=== PATIENT | female | born 1990 | race Asian ===

== ENCOUNTER → 2017-03-04 | Outpatient (CLI) | payer SELFPAY | LOC: COL.RAD 10:29 | DX: R00.2 Palpitations (principal); R07.9 Chest pain, unspecified ==

== ENCOUNTER 2020-07-15 14:37 | Outpatient (CLI) | payer OTHER ==
[2020-07-15] VITALS (7 sets, daily range): BP systolic 92–115; BP diastolic 53–65; PULSE 77–120; TEMP 98.7
[~2020-07-15] VITALS: Ht 165.1 cm; Wt 65.0 kg
[2020-07-15] MEDS ORDERED: NATURAL IRON65 MG (15:11)
[2020-07-15] MEDS ORDERED: PRENATAL TABLET PO (15:11)
--- NOTE | 2020-07-15 15:15 | NUR ---
1443- Pt arrives on unit ambulatory with . Pt sent over from the office by Dr Flower with complaints of vaginal bleeding. Pt oriented to room. Into bathroom to change into gown. 1453- Pt into bed, EFM and TOCO on and tracing. O2 sat monitor on and tracing maternal HR. VSS. Pt states she had dark red and pink bleeding this morning. Pt denies LOF, cramping, or contractions. +FM per Pt and heard on monitor. Assessment completed.
--- NOTE | 2020-07-15 17:45 | NUR ---
1730- Terbutaline given SQ in right upper arm. Pt tolerated well. 1740- TOCO adjusted, no contractions noted on monitor. Pt denies feeling tightening since Terbutaline shot. 174- Dr Flower at bedside. Reviews strip. Palpates abd. Discusses contractions and bleeding. wanting to transfer to [facility]. Pt tearful. Questions encouraged and answered.
[2020-07-15 18:14] LABS: AMORPHOUS CRYSTAL Present /uL; MUCOUS Present /lpf; PH 7 (5-8); URINE APPEARANCE Hazy; URINE BACTERIA Rare /hpf; URINE BILIRUBIN Negative (NEGATIVE); URINE BLOOD 3+ (NEGATIVE); URINE COLOR Yellow; URINE GLUCOSE Negative (NEGATIVE); URINE KETONE Negative (NEGATIVE); URINE LEUKOCYTE ESTERASE 3+ (NEGATIVE); URINE NITRATE Negative (NEGATIVE); URINE PROTEIN(semi-quant) Negative (NEGATIVE); URINE RBC 0-2 /hpf; URINE UROBILINOGEN Negative (NEGATIVE)
[2020-07-15 18:29] LABS: COLLECTION METHOD CLEAN CATCH
--- NOTE | 2020-07-15 19:00 | NUR ---
1820 Report received, care assumed. Patient resting in bed with at side. Denies contractions. No contractions per toco. FHR reactive. 184 EMS to unit, report given. 1 contraction noted per toco in the past hour. Patient denies feeling contraction. Patient assisted to bathroom. No bleeding noted on peripad. Patient voids without difficulty and then assisted to EMS stretcher. 1900 Patient discharged to care of EMS.
--- NOTE | 2020-07-15 19:10 | NUR ---
Report called to [facility].
== END 2020-07-15 19:00 | disposition short-term general hospital (02) ==
LOC: LDRO 14:37
PROVIDERS: Obstetrics & Gynecology
DX: O46.93 Antepartum hemorrhage, unspecified, third trimester (principal); Z3A.33 33 weeks gestation of pregnancy
CPT/HCPCS: J0702; J3105; J7120

== ENCOUNTER 2020-09-11 04:39 | Inpatient (IN) | payer OTHER ==
[~2020-09-11] VITALS: Ht 167.6 cm; Wt 70.9 kg
[2020-09-11] VITALS (32 sets, daily range): BP systolic 93–132; BP diastolic 52–86; PULSE 68–90; TEMP 98.1–98.3
[~2020-09-11 04:39] MED LIST: NATURAL IRON65 MG; PRENATAL TABLET PO
--- NOTE | 2020-09-11 04:45 | NUR ---
0445- PATIENT AND SPOUSE AMBULATORY TO THE UNIT. PATIENT ORIENATED TO ROOM AND CHANGED INTO CLEAN GOWN. THIS IS A DR. KHOURY PATIENT WHO IS [age] TODAY WHO PRESENTS THINKING SHE SROM'D AT HOME AT 0425. PATIENT REPORTS GFM, NO BLEEDING AND OCCASIONAL CONTRACTIONS. 0450- EFM AND TOCO ON AND TRACING. VITALS TAKEN, ASSESSMENT COMPLETED. SVE REVEALED POSITIVE SROM AND 3/80/-2. PLAN OF CARE DISCUSSED. 0500- PROVIDER RAIL BONDER NOTIFIED AND ORDERS GIVE, SEE PHSYICIAN NOTIFICATION. 0520- CONSENTS SIGNED AND WITNESSED. 0530- IV STARTED WITH 18G IN THE RIGHT HAND. LR RUNNING AND FIRST DOSE OF PEN G STARTED. PATIENT DENIES FURTHER NEEDS. CALL LIGHT WITHIN REACH.
[2020-09-11 05:58] LABS: BASO % 0.4 % (0.0-2.0); EOS # 0.1 (0.0-0.7); EOS % 1.3 % (0-4.0); GRAN % 66.9 % (42.2-75.2); LYMPH # 1.7 (1.2-3.4); LYMPH % 22.7 % (20.0-51.0); MEAN CELL VOLUME 91 fl (80.0-100.0); MEAN CORPUSCULAR HEMOGLOBIN 31 pg (27.0-31.0); MEAN CORPUSCULAR HGB CONC 34 g/dl (33.0-37.0); MONO # 0.6 (0.1-0.6); MONO % 8.2 % (1.7-9.3); PLATELET COUNT 140 K/mm3 (130-400); RED BLOOD COUNT 3.89 M/mm3 (4.10-5.30)
[2020-09-11 05:59] LABS: HEMATOCRIT 35.2 % (37.0-47.0)
--- NOTE | 2020-09-11 06:55 | NUR ---
in-house, informed patient here, SROM @ 5816, clear fluid, not antonio very frequently. Verbal order obtained to start pitocin per protocol.
--- NOTE | 2020-09-11 07:31 | NUR ---
Requests epidural at this time, LR bolus begun.
--- NOTE | 2020-09-11 07:58 | NUR ---
here for am rounds. Discusses plan of care with patient. Verbalizes understanding.
--- NOTE | 2020-09-11 08:20 | NUR ---
RAVEN Cedeño, here for epidural placement per patient request. Patient allowed up to BR prior to procedure. 0823: Single shot administered by LOAD TESTER. 0824: Epidural catheter threaded by LOAD TESTER. No adverse reactions noted. Tolerates procedure well.
--- NOTE | 2020-09-11 09:00 | NUR ---
Repositioned to right lateral with peanut ball following piedra placement.
--- NOTE | 2020-09-11 09:30 | NUR ---
Repositioned to left lateral with peanut ball.
--- NOTE | 2020-09-11 10:23 | NUR ---
Repositioned from semi-baker's to wedged left.
--- NOTE | 2020-09-11 10:55 | NUR ---
1055: First push attempt with instruction. 1102: Switched to rope pull pushing method using squat bar. Note patient feet propped up on squat bar. Pushing efforts much stronger using this method.
--- NOTE | 2020-09-11 11:42 | NUR ---
/nursery nurse here for delivery. 1150: Spontaneous vaginal delivery of head by . Tight nuchal doubly clamped and cut prior to delivery of shoulders by . 1150: Spontaneous vaginal delivery of male by . Passed off to nursery nurse per patient request for to be cleaned before skin to skin. 1152: Spontaneous vaginal delivery of placenta by . Pit bolus begun immediately following. works to repair 3rd degree perineal laceration, left side wall tear with 2-[address]-1 x3 suture packs. EBL 500 mL.
--- NOTE | 2020-09-11 15:30 | NUR ---
Santos catheter placed after patient spent more than 15 minutes on toilet attempting to spontaneously void, with no result. Note urine return tea colored, and blood tinged, indicating possible bruised bladder from trauma of delivery.
--- NOTE | 2020-09-11 15:45 | NUR ---
Transferred to PP [address] per wheelchair at this time.
[2020-09-12 00:30] VITALS: BP 121/61; PULSE 72
[2020-09-12 04:45] VITALS: BP 104/57; PULSE 73; TEMP 98.1
[2020-09-12 07:29] VITALS: BP 126/74; PULSE 78; TEMP 98.1
[2020-09-12 07:38] LABS: BASO % 0.3 % (0.0-2.0); EOS # 0.1 (0.0-0.7); EOS % 1.2 % (0-4.0); GRAN % 75.4 % (42.2-75.2); LYMPH # 1.8 (1.2-3.4); MEAN CELL VOLUME 93 fl (80.0-100.0); MEAN CORPUSCULAR HGB CONC 33 g/dl (33.0-37.0); MEAN PLATELET VOLUME 11.6 fl (7.4-10.4); MONO # 0.6 (0.1-0.6); MONO % 5.6 % (1.7-9.3); PLATELET COUNT 127 K/mm3 (130-400); RED BLOOD COUNT 2.78 M/mm3 (4.10-5.30); REDCELL DISTRIBUTION WIDTH-CV 15.2 % (11.5-14.5)
[2020-09-12 07:39] LABS: HEMATOCRIT 25.8 % (37.0-47.0); HEMOGLOBIN 8.5 g/dl (12.5-16.0); MEAN CORPUSCULAR HEMOGLOBIN 31 pg (27.0-31.0)
--- NOTE | 2020-09-12 12:04 | NUR ---
Initial visit; Patient thanked Manager Game for offering congratulations and God's blessings for the of her son. Manager Game thanked patient for choosing [facility].
[2020-09-12 16:14] VITALS: BP 108/58; PULSE 64; TEMP 97.8
[2020-09-12 20:00] VITALS: BP 108/61; PULSE 71; TEMP 98
[2020-09-13] MEDS ORDERED: IBU600 MG PO (07:57)
[2020-09-13 08:15] VITALS: BP 108/67; PULSE 68; TEMP 98.1
--- NOTE | 2020-09-13 08:20 | NUR ---
Rests in bed, alert. Tylenol 1000 mg, ibuprofen 600 mg given per request and as ordered.
== END 2020-09-13 16:15 | disposition home or self-care (01) | DRG 807 ==
LOC: LDRO 04:39 → OB 05:05 → LDR 05:05 → OB 15:30
PROVIDERS: Obstetrics & Gynecology; ADMIT Obstetrics & Gynecology
PROC: 10E0XZZ Delivery of Products of Conception, External Approach (ICD-10-PCS; principal; 2020-09-11)
PROC: 0KQM0ZZ Repair Perineum Muscle, Open Approach (ICD-10-PCS; 2020-09-11)
DX: O99.824 Streptococcus B carrier state complicating childbirth (principal); Z37.0 Single live birth; O99.02 Anemia complicating childbirth; D64.9 Anemia, unspecified; O70.1 Second degree perineal laceration during delivery; O69.1XX0 Labor and delivery complicated by cord around neck, with compression, not applicable or unspecified; Z3A.38 38 weeks gestation of pregnancy; Z20.822 Contact with and (suspected) exposure to COVID-19
CPT/HCPCS: J2540; J2590; J7120